=== PATIENT | male | born 1975 | race Native Hawaiian/Other Pacific Islander ===

== ENCOUNTER 2016-11-08 20:53 | Emergency (ER) | payer SELFPAY ==
[2016-11-08 21:24] VITALS: BP 128/81; PULSE 80; TEMP 98.4
[2016-11-08] MEDS ORDERED: Bacitracin 500 Units/gm Oint Foilpak UD ONE (22:06)
--- NOTE | 2016-11-08 22:10 | C.PDOC ---
History Of Present Illness Patient is a 41 year old male who presents to the ER with a laceration to the left middle finger. Patient state he cut himself with a kitchen knife 1 hour [employer]. Denies weakness or numbness. Time Seen by Provider: 11/08/16 21:26 Chief Complaint (Nursing): Abnormal Skin Integrity History Per: Patient History/Exam Limitations: no limitations Onset/Duration Of Symptoms: Hrs Current Symptoms Are (Timing): Still Present Location Of Injury: Left: Hand (Middle finger) Quality Of Symptoms: Painful Recent travel outside of the [place]: No Past Medical History Reviewed: Historical Data, Nursing Documentation, Vital Signs Vital Signs: Last Vital Signs Temp 98.4 F 11/08/16 21:22 Pulse 80 11/08/16 21:22 Resp 20 11/08/16 22:16 BP 128/81 11/08/16 21:22 Pulse Ox - Medical History PMH: No Chronic Diseases Surgical History: No Surg Hx Family History: States: Unknown Family Hx - Social History Hx Alcohol Use: Yes Hx Substance Use: No - Immunization History Hx Tetanus Toxoid Vaccination: No Hx Influenza Vaccination: No Hx Pneumococcal Vaccination: No Review Of Systems Musculoskeletal: Positive for: Hand Pain (Left middle finger laceration) Neurological: Negative for: Weakness, Numbness Physical Exam - Physical Exam Appears: Well, Non-toxic Skin: Normal Color, Warm, Dry Head: Atraumatic, Normacephalic Eye(s): bilateral: Normal Inspection Oral Mucosa: Moist Extremity: Normal ROM, Capillary Refill (Good), No Deformity, Other (1cm laceration to palmar aspect of proximal phalanx. Tendon visualized but not lacerated.) Pulses: Left Radial: Normal, Right Radial: Normal Neurological/Psych: Oriented x3, Normal Motor, Normal Sensation ED Course And Treatment Progress Note: Tetanus vaccine administered. Laceration - Laceration Repair Left middle proximal phalanx Wound Length (In cm): 1cm Description Of Wound: Linear Wound Cleansed With: Sterile Saline Anesthesia: Lidocaine 2%, With Epi Wound Examination: Irrigated With Saline Wound Closure: Suture (5x) Suture Technique And Material Used: Nylon (4-0) Wound Complexity: Simple (Pt tolerated well) Disposition Counseled Patient/Family Regarding: Diagnosis, Need For Followup, Rx Given - Disposition Referrals: PMD, private doctor [Other] Disposition: HOME/ ROUTINE Disposition Time: 22:08 Condition: STABLE Additional Instructions: Please follow up with PMD in 2 days for wound check May follow up with a hand surgeon in [place] for more extensive evaluation Apply bacitracin or neosporin oint Follow wound care instructions Suture removal in 8-10 days Return to ER if redness, swelling, draining or worse Instructions: Care For Your Stitches (ED) - Clinical Impression Clinical Impression: Finger laceration - Scribe Statement The provider has reviewed the documentation as recorded by the Scribkristi Caicedo All medical record entries made by the Yen were at my direction and personally dictated by me. I have reviewed the chart and agree that the record accurately reflects my personal performance of the history, physical exam, medical decision making, and the department course for this patient. I have also personally directed, reviewed, and agree with the discharge instructions and disposition.
[2016-11-08 22:17] VITALS: RESP 20
== END 2016-11-08 22:16 | disposition home or self-care (01) ==
LOC: C.ER 20:53
DX: S61.213A Laceration without foreign body of left middle finger without damage to nail, initial encounter (principal); W26.0XXA Contact with knife, initial encounter